=== PATIENT | male | born 1985 | race Caucasian/White ===

== ENCOUNTER 2023-09-05 18:44 | Emergency (ER) | payer SELFPAY ==
[~2023-09-05] VITALS: Ht 162.6 cm; Wt 71.0 kg
[2023-09-05 19:20] VITALS: TEMP 99.9; O2SAT 98
[2023-09-05] MEDS ORDERED: IBUPROFEN 600MG TABLET PO STA (21:17)
[2023-09-05 21:44] VITALS: BP 143/93; PULSE 106; RESP 18
[2023-09-05] MEDS ORDERED: ALBU18HF2 IH (23:01)
[2023-09-05] MEDS ORDERED: NAPR500T7 PO (23:01)
[2023-09-05] MEDS ORDERED: D-ME473S50 PO (23:01)
== END 2023-09-05 23:25 | disposition home or self-care (01) ==
LOC: ER 18:44
DX: U07.1 COVID-19 (principal)
CPT/HCPCS: 71045; 87070; 87426; 87430; 99283; 99284

== ENCOUNTER 2023-10-04 15:23 | Emergency (ER) | payer MEDICAID ==
[~2023-10-04] VITALS: Ht 160 cm; Wt 82.0 kg
[~2023-10-04 15:23] MED LIST: ALBU18HF2 IH; D-ME473S50 PO; NAPR500T7 PO
[2023-10-04 15:38] VITALS: O2SAT 99
[2023-10-04] MEDS ORDERED: MED4 MT (17:46)
[2023-10-04 18:14] VITALS: BP 126/73; PULSE 97; RESP 18; TEMP 99.7
== END 2023-10-04 18:16 | disposition home or self-care (01) ==
LOC: ER 15:23
DX: B34.9 Viral infection, unspecified (principal)
CPT/HCPCS: 99283